=== PATIENT | male | born 1955 | race Caucasian/White ===

== ENCOUNTER 2018-11-19 15:30 | Inpatient (IN) | payer OTHER ==
--- NOTE | 2018-11-19 18:12 | HP ---
"COWS - Scale Resting Pulse: 0= MD 80 or Below Sweatin=Flushed/Facial Moisture Restless Observation: 3= Extraneous Movement Pupil Size: 2= Moderately Dilated (Pupils = 5 mm) Bone or Joint Aches: 0= None Runny Nose/ Eye Tearin= Nasal Congestion GI Upset > 30mins: 2= Nausea/Diarrhea Tremor Observation: 2= Slight Tremor Visible Yawning Observation: 0= None Anxiety or Irritability: 2=Irritable/Anxious Goose Flesh Skin: 0=Smooth Skin COWS Score: 14 CIWA Score - Admission Criteria OAS Guidelines: Admission for Medically Managed Detox: Requires at least one of the followin. CIWA greater than 12 2. Seizures within the past 24 hours 3. Delirium tremens within the past 24 hours 4. Hallucinations within the past 24 hours 5. Acute intervention needed for co occurring medical disorder 6. Acute intervention needed for co occurring psychiatric disorder 7. Severe withdrawal that cannot be handled at a lower level of care (continued vomiting, continued diarrhea, abnormal vital signs) requiring intravenous medication and/or fluids 8. Admission ROS [facility] Chief Complaint: States having alcohol, Xanax, and heroin withdrawal. Allergies/Adverse Reactions: Allergies Allergy/AdvReac Type Severity Reaction Status Date / Time No Known Allergies Allergy Verified 11/19/18 17:37 History of Present Illness: States here to get life in order. Alcohol use began at age 18. Current use since age 57. Last used 11/16 Heroin/opioid use began at age 57. 2 bundles/day. Nasal. Last used today. Denies methadone use. Xanax use began at age 57. 2 mg 3x/wk. Last used 11/14. Nicotine use since age 18. Denies hx seizures, blackouts, or overdoses. Attempted cessation on own - but only lasted 3 days. May be interested in starting Suboxone. No Narcan kit at home and states not interested. PMHx: Cough x 1 month, COPD, Asthma, Hepatitis B and C; Psoriasis, HTN MHHx: Depression, anxiety, insomnia. Denies thoughts of harming self or others. Search Terms: Jeffrey Banks, 1955 Search Date: 11/19/2018 06:06:37 PM The Drug Utilization Report below displays all of the controlled substance prescriptions, if any, that your patient has filled in the last twelve months. The information displayed on this report is compiled from pharmacy submissions to the Department, and accurately reflects the information as submitted by the pharmacies. This report was requested by: Shanthi Jones | Reference #: [id number] There are no results for the search terms that you entered. Exam Limitations: No Limitations - Ebola screening Have you traveled outside of the country in the last 21 days: No Have you had contact with anyone from an Ebola affected area: No Have you been sick,other than usual withdrawal symptoms: No Do you have a fever: Yes - Review of Systems Constitutional: Chills, Diaphoresis, Fever, Changes in sleep (Difficulty staying asleep) EENT: reports: Blurred Vision, Nose Congestion, Dental Problems (Dental pain. Chews and swallows okay.) Respiratory: reports: Cough (x month.), Shortness of Breath, SOB with Exertion Cardiac: reports: Chest Pain (Once in a while r/t stress. Denies at this time.) , Irregular Heart Rate (Hx.) GI: reports: Blood Streaked Bowels (Occassional w/ bowel mo), Diarrhea (Soft/ muddy- blacish/brown), Nausea, Indigestion (acid reflux) : reports: No Symptoms Reported Musculoskeletal: reports: No Symptoms Reported Integumentary: reports: Lesions ((L) upper arm), Other (Psoriasis on buttocks) Neuro: reports: Headache (moderate) Endocrine: reports: No Symptoms Reported Hematology: reports: No Symptoms Reported Psychiatric: reports: Judgement Intact, Orientated x3, Agitated, Anxious, Depressed (Denies thoughts of harming self or others.) Other Systems: Reviewed and Negative Patient History - PPD History Previous Implant?: Yes Documented Results: Negative w/o proof Implanted On Prior [facility] Admission?: No PPD to be Administered?: Yes - Smoking Cessation Smoking history: Current every day smoker Have you smoked in the past 12 months: Yes Aproximately how many cigarettes per day: 10 Hx Chewing Tobacco Use: No Initiated information on smoking cessation: Yes 'Breaking Loose' booklet given: 11/19/18 - Substance & Tx. History Hx Alcohol Use: Yes Hx Substance Use: Yes Substance Use Type: Alcohol, Heroin, Prescribed (Xanax) Hx Substance Use Treatment: No - Substances abused Alcohol Substance route: Oral Frequency: 3-6 times per week Amount used: 2 oz liquor w/ 1 16 oz beer Age of first use: 18 (Current amt since age 57) Date of last use: 11/16/18 Heroin Substance route: Inhalation Frequency: Daily Amount used: 2 bundles Age of first use: 57 Date of last use: 11/19/18 Alprazolam (Xanax) Substance route: Oral Frequency: 3-6 times per week Amount used: 2 mg Age of first use: 57 ( 2 mg 3 x/wk) Date of last use: 11/14/18 Admission Physical Exam S - Vital Signs Vital Signs: Vital Signs - 24 hr 11/19/18 17:52 Temperature 100.7 F H Pulse Rate 78 Respiratory 16 Rate Blood Pressure 125/82 - Physical General Appearance: Yes: Mild Distress, Obese, Tremorous, Sweating, Anxious HEENTM: Yes: EOMI, Hearing grossly Normal, Normocephalic, KENDRA (Pupils = 5 mm) , Pharynx Normal, Nasal Congestion, Rhinorrhea, Other (Chipped, cracked, and missing teeth) Respiratory: Yes: Lungs Clear, Normal Breath Sounds, No Respiratory Distress, Other (Cough productive of thick, yellowish phlegm) Neck: Yes: No masses,lesions,Nodules, Supple Breast: Yes: Breast Exam Deferred Cardiology: Yes: Regular Rhythm, Regular Rate, S1, S2, Edema (Edema (L) foot and ankle area. Pedal pulses (+). No increased warmth or erythema. FWB.) Abdominal: Yes: Non Tender, Soft, Increased Bowel Sounds, Protuberent ( Increased abdominal adiposity) Genitourinary: Yes: Within Normal Limits Back: Yes: Other (Slight curvature of spine. Becca-tender) Musculoskeletal: Yes: full range of Motion Extremities: Yes: Normal Capillary Refill, Normal Range of Motion, Tremors ( Mild tremors increase w/ arm elevation) Neurological: Yes: cotton feeder II-XII NML intact, Alert, Motor Strength 5/5, Normal Mood /Affect Integumentary: Yes: Normal Color, Dry, Warm, Diaphoresis, Other (Red, raised lesions on both buttocks. Superficial, closed abrasion on (L) upper arm) Lymphatic: Yes: Within Normal Limits - Diagnostic (1) Opioid dependence with withdrawal Current Visit: Yes Status: Acute (2) Alcohol use disorder, moderate, in early remission Current Visit: Yes Status: Acute (3) Xanax use disorder, mild, in early remission Current Visit: Yes Status: Acute (4) COPD (chronic obstructive pulmonary disease) Current Visit: Yes Status: Chronic Qualifiers: COPD type: unspecified COPD Qualified Code(s): J44.9 - Chronic obstructive pulmonary disease, unspecified (5) Poor dentition Current Visit: Yes Status: Chronic (6) Acid reflux Current Visit: Yes Status: Chronic Qualifiers: Esophagitis presence: without esophagitis Qualified Code(s): K21.9 - Gastro -esophageal reflux disease without esophagitis (7) Kyphosis Current Visit: Yes Status: Chronic Qualifiers: Kyphosis type: unspecified Spinal region: cervicothoracic Qualified Code( s): M40.203 - Unspecified kyphosis, cervicothoracic region (8) URI (upper respiratory infection) Current Visit: Yes Status: Acute Qualifiers: URI type: unspecified URI Qualified Code(s): J06.9 - Acute upper respiratory infection, unspecified (9) HTN (hypertension) Current Visit: Yes Status: Chronic Qualifiers: Hypertension type: unspecified Qualified Code(s): I10 - Essential (primary ) hypertension (10) Obesity (BMI 30.0-34.9) Current Visit: Yes Status: Chronic (11) Psoriasis Current Visit: Yes Status: Chronic Cleared for Admission S - Detox or Rehab [facility] Level of Care: Medically Managed Detox Regimen/Protocol: Methadone Breathalyzer - Breathalyzer Breathalyzer: 0 Urine Drug Screen - Test Device Lot number: [id number] Expiration date: 11/18/19 - Control Is test valid?: Yes - Results Drug screen NEGATIVE: No Urine drug screen results: MOP-Opiates, MTD-Methadone Inpatient Rehab Admission - Rehab Decision to Admit Inpatient rehab admission?: No"
[2018-11-19] MEDS ORDERED: MENTHOL/PHENOL 1 EACH UD MM PRN (19:00)
[2018-11-19] MEDS ORDERED: NALOXONE HCL 0.4 MG/ML VIAL IVPUSH PRN (19:00)
[2018-11-19] MEDS ORDERED: MAGNESIUM HYDROX 2400MG/30ML ORAL SUSPENSION 30 ML CUP PO PRN (19:00)
[2018-11-19] MEDS ORDERED: cloNIDine HCL 0.1 MG TABLET PO PRN (19:00)
[2018-11-19] MEDS ORDERED: ACETAMINOPHEN 325 MG TABLET (FP) PO PRN (19:00)
[2018-11-19] MEDS ORDERED: MAGNESIUM CITRATE 300 ML BOTTLE PO PRN (19:00)
[2018-11-19] MEDS ORDERED: BENZOCAINE 20 % GEL TUBE MM PRN (19:07)
[2018-11-19] MEDS ORDERED: AZITHROMYCIN 250 MG TABLET PO ONE (20:15)
[2018-11-19] MEDS ORDERED: METHADONE HCL 10 MG TABLET PO ONE (20:15)
[2018-11-19] MEDS ORDERED: AZITHROMYCIN 250 MG TABLET PO SCH (20:15)
[2018-11-19] MEDS: ALBUTEROL SO4 2.5/IPRATROPIUM 0.5 INH SOL 3 ML VIAL.NEB. NEB SCH (20:19)
[2018-11-19] MEDS: diazePAM 5 MG TABLET PO PRN (20:35)
[2018-11-19] MEDS: ACETAMINOPHEN 325 MG TABLET (FP) PO PRN (20:37)
[2018-11-19] MEDS: guaiFENesin 200 MG/10 ML 10 ML UNIT-DOSE CUPS PO SCH (20:40)
[2018-11-19] MEDS: THIAMINE HCL 100 MG TABLET (FP) PO SCH (22:27)
[2018-11-19] MEDS: traZODone HCL 50 MG TABLET (FP) PO PRN (22:28)
[2018-11-19] MEDS: PANTOPRAZOLE 20 MG TABLET (FP) PO SCH (22:28)
[2018-11-19] MEDS ORDERED: METHADONE HCL 10 MG TABLET (FOR DETOX USE ONLY) PO ONE (23:00)
[2018-11-20] MEDS: ALBUTEROL SO4 2.5/IPRATROPIUM 0.5 INH SOL 3 ML VIAL.NEB. NEB SCH (07:41)
[2018-11-20] MEDS: guaiFENesin 200 MG/10 ML 10 ML UNIT-DOSE CUPS PO SCH ×3 (07:41→19:21)
[2018-11-20] MEDS ORDERED: METHADONE HCL 10 MG TABLET (FOR DETOX USE ONLY) PO ONE (10:00)
[2018-11-20] MEDS ORDERED: PATIENT'S OWN MEDICATION (NON-FORMULARY) (Clonidine Hcl [Clonidine Hcl] 0.3 MG) PO SCH (10:00)
[2018-11-20 10:10] LABS: HEMATOCRIT 40.2 % (35.4-49); MCH 32.1 pg (25.7-33.7); MCHC 34.8 g/dl (32.0-35.9); MEAN CELL VOLUME 92.4 fl (80-96); PLATELET COUNT 173 K/MM3 (134-434); RBC 4.35 M/mm3 (4.00-5.60); RDW 14.4 % (11.9-15.9); WHITE BLOOD COUNT 5.9 K/mm3 (4.0-10.0)
[2018-11-20] MEDS: NICOTINE POLACRILEX 2 MG GUM BUC PRN (10:14)
[2018-11-20] MEDS: PRENATAL VITAMINS W/ FOLIC ACID TABLET (FP) PO SCH (10:14)
[2018-11-20] MEDS: PANTOPRAZOLE 20 MG TABLET (FP) PO SCH ×2 (10:15→22:13)
[2018-11-20] MEDS: NICOTINE 14 MG/24 HOURS TOPICAL PATCH TD SCH (10:15)
[2018-11-20] MEDS: diazePAM 5 MG TABLET PO PRN ×2 (10:15→17:32)
[2018-11-20] MEDS: cloNIDine HCL 0.1 MG TABLET PO SCH (10:24)
[2018-11-20 10:25] LABS: ALBUMIN 3.3 g/dl (3.4-5.0); ALK PHOS 71 U/L (45-117); ANION GAP 5 MMOL/L (8-16); BILIRUBIN,TOTAL 0.4 mg/dL (0.2-1); BLOOD UREA NITROGEN 16 mg/dL (7-18); CALCIUM 8.4 mg/dL (8.5-10.1); CHLORIDE 104 mmol/L (98-107); CO2 28 mmol/L (21-32); CREATININE 0.9 mg/dL (0.55-1.3); GLUCOSE,RANDOM 87 mg/dL (74-106); SGOT/AST 32 U/L (15-37); SGPT/ALT 47 U/L (13-61); SODIUM 137 mmol/L (136-145); TOT PROT 6.4 g/dl (6.4-8.2)
[2018-11-20] MEDS: HYDROCORTISONE 1% TOPICAL CREAM 30 GM TUBE TP PRN (11:02)
[2018-11-20] MEDS: ALBUTEROL SO4 0.083% IH SOL 2.5 MG/3 ML VIAL.NEB. NEB PRN (12:13)
--- NOTE | 2018-11-20 14:46 | EKG ---
Test Reason : Blood Pressure : / mmHG Vent. Rate : 079 BPM Atrial Rate : 079 BPM P-R Int : 144 ms QRS Dur : 084 ms QT Int : 358 ms P-R-T Axes : 054 062 073 degrees QTc Int : 410 ms NORMAL SINUS RHYTHM NORMAL ECG NO PREVIOUS ECGS AVAILABLE Confirmed by Jose Smallwood ([id number]) on 11/20/2018 2:45:58 PM Referred By: Confirmed By:Jose Smallwood
--- NOTE | 2018-11-20 14:54 | PN ---
BHS COWS - Scale Resting Pulse: 1= AR 81-100 Sweatin= Chills/Flushing Restless Observation: 0= Sits Still Pupil Size: 0= Normal to Room Light Bone or Joint Aches: 2= Severe Diffuse Aches Runny Nose/ Eye Tearin= None GI Upset > 30mins: 2= Nausea/Diarrhea Tremor Observation of Outstretched Hands: 0= None Yawning Observation: 1= 1-2x During Session Anxiety or Irritability: 2=Irritable/Anxious Goose Flesh Skin: 3=Piloerection COWS Score: 12 BHS Progress Note (SOAP) Subjective: Stomach Cramping, Body Aches, Diarrhea, Sweating, H/A, Interrupted Sleep. Objective: PATIENT A & O X 3, OBSERVED AMBULATING ON UNIT. IN NO ACUTE DISTRESS. 11/20/18 14:52 Vital Signs Temperature 97.2 F L 11/20/18 13:55 Pulse Rate 88 11/20/18 13:55 Respiratory Rate 18 11/20/18 13:55 Blood Pressure 113/77 11/20/18 13:55 O2 Sat by Pulse Oximetry (%) Laboratory Tests 11/20/18 11/20/18 07:00 07:00 WBC 5.9 RBC 4.35 Hgb 14.0 Hct 40.2 MCV 92.4 MCH 32.1 MCHC 34.8 RDW 14.4 Plt Count 173 MPV 8.0 Sodium 137 Potassium 4.0 Chloride 104 Carbon Dioxide 28 Anion Gap 5 L BUN 16 Creatinine 0.9 Creat Clearance w eGFR 85.23 Random Glucose 87 Calcium 8.4 L Total Bilirubin 0.4 AST 32 ALT 47 Alkaline Phosphatase 71 Total Protein 6.4 Albumin 3.3 L LABS NOTED. RPR RESULT PENDING. 11/20/18 14:53 Assessment: 11/20/18 14:53 WITHDRAWAL SYMPTOMS. Plan: CONTINUE DETOX. INCREASE DAILY PO FLUID INTAKE. PRN PEPTO-BISMIOL PO FOR DIARRHEA.
[2018-11-20] MEDS: THIAMINE HCL 100 MG TABLET (FP) PO SCH (22:13)
[2018-11-20] MEDS: MELATONIN 5 MG TABLETS PO PRN (22:14)
[2018-11-21] MEDS: traZODone HCL 50 MG TABLET (FP) PO PRN (00:01)
[2018-11-21] MEDS: guaiFENesin 200 MG/10 ML 10 ML UNIT-DOSE CUPS PO SCH ×3 (05:55→21:24)
[2018-11-21] MEDS ORDERED: METHADONE HCL 10 MG TABLET (FOR DETOX USE ONLY) PO ONE (10:00)
[2018-11-21] MEDS: diazePAM 5 MG TABLET PO PRN ×3 (10:30→17:51)
[2018-11-21] MEDS: PANTOPRAZOLE 20 MG TABLET (FP) PO SCH ×2 (10:30→22:16)
[2018-11-21] MEDS: PRENATAL VITAMINS W/ FOLIC ACID TABLET (FP) PO SCH (10:30)
[2018-11-21] MEDS: NICOTINE 14 MG/24 HOURS TOPICAL PATCH TD SCH (10:31)
[2018-11-21] MEDS: cloNIDine HCL 0.1 MG TABLET PO SCH (10:31)
[2018-11-21] MEDS: HYDROCORTISONE 1% TOPICAL CREAM 30 GM TUBE TP PRN (12:35)
[2018-11-21] MEDS: ALBUTEROL SO4 0.083% IH SOL 2.5 MG/3 ML VIAL.NEB. NEB PRN ×2 (12:53→20:00)
--- NOTE | 2018-11-21 15:09 | PN ---
BHS COWS - Scale Resting Pulse: 2= IA 101-120 Sweatin= Chills/Flushing BHS Progress Note (SOAP) Subjective: Body Aches, Diarrhea, Sweating, Interrupted Sleep. Objective: PATIENT A & O X 3, OBSERVED AMBULATING ON UNIT. IN NO ACUTE DISTRESS. 11/21/18 15:08 Vital Signs Temperature 96.8 F L 11/21/18 14:32 Pulse Rate 76 11/21/18 14:32 Respiratory Rate 18 11/21/18 14:32 Blood Pressure 109/71 11/21/18 14:32 O2 Sat by Pulse Oximetry (%) Laboratory Tests 11/20/18 11/20/18 11/20/18 07:00 07:00 07:00 WBC 5.9 RBC 4.35 Hgb 14.0 Hct 40.2 MCV 92.4 MCH 32.1 MCHC 34.8 RDW 14.4 Plt Count 173 MPV 8.0 Sodium 137 Potassium 4.0 Chloride 104 Carbon Dioxide 28 Anion Gap 5 L BUN 16 Creatinine 0.9 Creat Clearance w eGFR 85.23 Random Glucose 87 Calcium 8.4 L Total Bilirubin 0.4 AST 32 ALT 47 Alkaline Phosphatase 71 Total Protein 6.4 Albumin 3.3 L RPR Titer Nonreactive LABS NOTED. Assessment: 11/21/18 15:08 WITHDRAWAL SYMPTOMS. Plan: CONTINUE DETOX. PRN ROBAXIN PO FOR BODY ACHES / MUSCLE SPASMS. PRN PEPTO-BISMOL PO FOR DIARRHEA.
[2018-11-21] MEDS: MAG HYDROX/AL HYDROX/SIMETH 30 ML UNIT-DOSE CUP PO PRN ×2 (17:51)
--- NOTE | 2018-11-21 17:55 | CONSULT ---
[facility] Psychiatric Consult - Data Date of interview: 11/21/18 Admission source: [facility] Identifying data: First admission to [facility] for this 63 y/o male self-referred for detoxification treatment (heroin, xanax). Examined at [address] [place] [address]. patient is single, no children, homeless, unemployed retired and supported on a pension + Social Security benefits. Substance Abuse History: Discussed in this session. Mr Jocelyn endorses a fairly recent history of heroin abuse . Started at ag 57 after his alf and escalated in recent months (2 bundles daily via snorting). Patient indicates that he uses alcohol sporadically (had consumed 16 oz of beer + 2 shots of whiskey five days ago. Smohes 1/2 pack of cigarettes daily. Additional details in current [facility] report as follows : Smoking history: Current every day smoker. Have you smoked in the past 12 months: Yes. Aproximately how many cigarettes per day: 10. Hx Chewing Tobacco Use: No. Initiated information on smoking cessation: Yes. 'Breaking Loose' booklet given: 11/19/18. - Substance & Tx. History. Hx Alcohol Use: Yes. Hx Substance Use: Yes. Substance Use Type: Alcohol, Heroin, Prescribed (Xanax). Hx Substance Use Treatment: No. - Substances abused. Alcohol. Substance route: Oral. Frequency: 3-6 times per week. Amount used: 2 oz liquor w/ 1 16 oz beer. Age of first use: 18 ( Current amt since age 57). Date of last use: 11/16/18. Heroin. Substance route: Inhalation. Frequency: Daily. Amount used: 2 bundles. Age of first use : 57. Date of last use: 11/19/18. Alprazolam (Xanax). Substance route: Oral. Frequency: 3-6 times per week. Amount used: 2 mg. Age of first use: 57 ( 2 mg 3 x/wk). Date of last use: 11/14/18 Medical History: Remarkable for hepatitis B, psoriasis, hypertension, COPD, bronchial asthma and a history of orthosurgery (left shoulder). Psychiatric History: Patient denies history of psychiatric hospitalizations. Saw a psychiatrist a few months ago to address issues of dysphoria + insomnia. Was prescribed trazodone at bedtime. Never referred to psychiatric OPD care. No history of suicide attempts. Physical/Sexual Abuse/Trauma History: Patient denies. Additional Comment: Urine drug screen results: MOP-Opiates, MTD-Methadone. Noted. Mental Status Exam - Mental Status Exam Alert and Oriented to: Time, Place, Person Cognitive Function: Good Patient Appearance: Disheveled Mood: Nervous, Anxious Affect: Mood Congruent, Constricted Patient Behavior: Fatigued, Appropriate, Cooperative Speech Pattern: Clear Voice Loudness: Normal Thought Process: Goal Oriented Thought Disorder: Not Present Hallucinations: Denies Suicidal Ideation: Denies Homicidal Ideation: Denies Insight/Judgement: Poor Sleep: Fair Appetite: Good Muscle strength/Tone: Normal Gait/Station: Normal Psychiatric Findings - Problem List ([place] 1, 2,3) (1) Opioid dependence with withdrawal Current Visit: Yes Status: Acute (2) Alcohol use disorder, moderate, in early remission Current Visit: Yes Status: Acute (3) Benzodiazepine abuse Current Visit: Yes Status: Acute (4) Substance induced mood disorder Current Visit: Yes Status: Chronic (5) Insomnia Current Visit: Yes Status: Chronic - Initial Treatment Plan Initial Treatment Plan: Psychoeducation and support. Sleep hygiene. Detoxification in progress. Motivational rounds for lifestyle changes. Rehabilitation recoomended (patient is in agreement). Continue trazodone at 50 mg po hs prn. NO increase justified at this time. Discussed with the patient. Mr Banks is made aware of potential for priapism. patient agrees to follow this plan of care. Observation.
[2018-11-21] MEDS: MELATONIN 5 MG TABLETS PO PRN (22:16)
[2018-11-21] MEDS: THIAMINE HCL 100 MG TABLET (FP) PO SCH (22:16)
[2018-11-22] MEDS: diazePAM 5 MG TABLET PO PRN ×3 (00:24→18:07)
[2018-11-22] MEDS: guaiFENesin 200 MG/10 ML 10 ML UNIT-DOSE CUPS PO SCH ×2 (04:30→10:34)
[2018-11-22] MEDS: ALBUTEROL SO4 0.083% IH SOL 2.5 MG/3 ML VIAL.NEB. NEB PRN ×2 (09:21→15:46)
[2018-11-22] MEDS ORDERED: METHADONE HCL 10 MG TABLET (FOR DETOX USE ONLY) PO ONE (10:00)
[2018-11-22] MEDS ORDERED: ALBUTEROL SO4 8 GM HFA INHALER IH PRN (10:24)
[2018-11-22] MEDS: cloNIDine HCL 0.1 MG TABLET PO SCH (10:33)
[2018-11-22] MEDS: PANTOPRAZOLE 20 MG TABLET (FP) PO SCH ×2 (10:34→22:07)
[2018-11-22] MEDS: PRENATAL VITAMINS W/ FOLIC ACID TABLET (FP) PO SCH (10:34)
[2018-11-22] MEDS: NICOTINE 14 MG/24 HOURS TOPICAL PATCH TD SCH (10:35)
[2018-11-22] MEDS: HYDROCORTISONE 1% TOPICAL CREAM 30 GM TUBE TP PRN ×2 (10:38→20:43)
[2018-11-22] MEDS: BISMUTH SUBSALICYLATE 524 MG/30 ML UD PO PRN ×2 (11:10→18:08)
--- NOTE | 2018-11-22 17:13 | PN ---
BHS Progress Note (SOAP) Subjective: Anxious, Body Aches, Diarrhea. Objective: PATIENT A & O X 3, OBSERVED AMBULATING ON UNIT. IN NO ACUTE DISTRESS. 11/22/18 17:13 Vital Signs Temperature 99.3 F 11/22/18 13:58 Pulse Rate 63 11/22/18 16:16 Respiratory Rate 20 11/22/18 13:58 Blood Pressure 108/70 11/22/18 13:58 O2 Sat by Pulse Oximetry (%) 98 11/22/18 09:51 Laboratory Tests 11/20/18 11/20/18 11/20/18 07:00 07:00 07:00 WBC 5.9 RBC 4.35 Hgb 14.0 Hct 40.2 MCV 92.4 MCH 32.1 MCHC 34.8 RDW 14.4 Plt Count 173 MPV 8.0 Sodium 137 Potassium 4.0 Chloride 104 Carbon Dioxide 28 Anion Gap 5 L BUN 16 Creatinine 0.9 Creat Clearance w eGFR 85.23 Random Glucose 87 Calcium 8.4 L Total Bilirubin 0.4 AST 32 ALT 47 Alkaline Phosphatase 71 Total Protein 6.4 Albumin 3.3 L RPR Titer Nonreactive LABS NOTED. Assessment: 11/22/18 17:14 WITHDRAWAL SYMPTOMS. Plan: CONTINUE DETOX. INCREASE DAILY PO FLUID INTAKE. PRN PEPTO-BISMOL PO FOR DIARRHEA. PATIENT SCHEDULED FOR D/C TOMORROW.
[2018-11-22] MEDS: THIAMINE HCL 100 MG TABLET (FP) PO SCH (22:07)
[2018-11-22] MEDS: MELATONIN 5 MG TABLETS PO PRN (22:07)
[2018-11-22] MEDS: traZODone HCL 50 MG TABLET (FP) PO PRN (22:07)
[2018-11-23] MEDS: MAG HYDROX/AL HYDROX/SIMETH 30 ML UNIT-DOSE CUP PO PRN (05:26)
[2018-11-23] MEDS ORDERED: METHADONE HCL 5 MG TABLET (FOR DETOX USE ONLY) PO ONE (06:00)
[2018-11-23] MEDS: HYDROCORTISONE 1% TOPICAL CREAM 30 GM TUBE TP PRN ×2 (08:51→22:04)
[2018-11-23] MEDS: cloNIDine HCL 0.1 MG TABLET PO SCH (10:34)
[2018-11-23] MEDS: PANTOPRAZOLE 20 MG TABLET (FP) PO SCH ×2 (10:35→22:03)
[2018-11-23] MEDS: METHOCARBAMOL 500 MG TABLET PO PRN ×2 (10:35→17:39)
[2018-11-23] MEDS: PRENATAL VITAMINS W/ FOLIC ACID TABLET (FP) PO SCH (10:36)
[2018-11-23] MEDS: NICOTINE 14 MG/24 HOURS TOPICAL PATCH TD SCH (10:36)
--- NOTE | 2018-11-23 11:18 | PN ---
S Progress Note (SOAP) Subjective: alert,no complaint Objective: 11/23/18 11:16 Vital Signs Temperature 97.4 F L 11/23/18 10:21 Pulse Rate 83 11/23/18 10:21 Respiratory Rate 18 11/23/18 10:21 Blood Pressure 124/79 11/23/18 10:21 O2 Sat by Pulse Oximetry (%) 98 11/22/18 09:51 Assessment: 11/23/18 11:16 detox completed,no withdrawal symptom Plan: discharge from detox,transfer to [address] [place] [address] for further level of care
--- NOTE | 2018-11-23 11:35 | DS ---
[facility] Detox Discharge Summary Admission Date: 11/19/18 Discharge Date: 11/23/18 - History Present History: Alcohol Dependence, Opioid Dependence, Sedative Dependence Additional Comments: transfer to [address] for further level of care Pertinent Past History: copd essential hypertension - Physical Exam Results Vital Signs: Vital Signs Temperature 97.4 F L 11/23/18 10:21 Pulse Rate 83 11/23/18 10:21 Respiratory Rate 18 11/23/18 10:21 Blood Pressure 124/79 11/23/18 10:21 O2 Sat by Pulse Oximetry (%) 98 11/22/18 09:51 Pertinent Admission Physical Exam Findings: withdrawal symptom Vital Signs Temperature 97.4 F L 11/23/18 10:21 Pulse Rate 83 11/23/18 10:21 Respiratory Rate 18 11/23/18 10:21 Blood Pressure 124/79 11/23/18 10:21 O2 Sat by Pulse Oximetry (%) 98 11/22/18 09:51 Laboratory Last Values WBC 5.9 K/mm3 (4.0-10.0) 11/20/18 07:00 RBC 4.35 M/mm3 (4.00-5.60) 11/20/18 07:00 Hgb 14.0 GM/dL (11.7-16.9) 11/20/18 07:00 Hct 40.2 % (35.4-49) 11/20/18 07:00 MCV 92.4 fl (80-96) 11/20/18 07:00 MCH 32.1 pg (25.7-33.7) 11/20/18 07:00 MCHC 34.8 g/dl (32.0-35.9) 11/20/18 07:00 RDW 14.4 % (11.9-15.9) 11/20/18 07:00 Plt Count 173 K/MM3 (134-434) 11/20/18 07:00 MPV 8.0 fl (7.5-11.1) 11/20/18 07:00 Sodium 137 mmol/L (136-145) 11/20/18 07:00 Potassium 4.0 mmol/L (3.5-5.1) 11/20/18 07:00 Chloride 104 mmol/L (98-107) 11/20/18 07:00 Carbon Dioxide 28 mmol/L (21-32) 11/20/18 07:00 Anion Gap 5 MMOL/L (8-16) L 11/20/18 07:00 BUN 16 mg/dL (7-18) 11/20/18 07:00 Creatinine 0.9 mg/dL (0.55-1.3) 11/20/18 07:00 Creat Clearance w eGFR 85.23 (>60) 11/20/18 07:00 Random Glucose 87 mg/dL (74-106) 11/20/18 07:00 Calcium 8.4 mg/dL (8.5-10.1) L 11/20/18 07:00 Total Bilirubin 0.4 mg/dL (0.2-1) 11/20/18 07:00 AST 32 U/L (15-37) 11/20/18 07:00 ALT 47 U/L (13-61) 11/20/18 07:00 Alkaline Phosphatase 71 U/L (45-117) 11/20/18 07:00 Total Protein 6.4 g/dl (6.4-8.2) 11/20/18 07:00 Albumin 3.3 g/dl (3.4-5.0) L 11/20/18 07:00 RPR Titer Nonreactive (NONREACTIVE) 11/20/18 07:00 - Treatment Hospital Course: Detox Protocol Followed, Detoxed Safely, Responded well, Discharged Condition Good, Rehab Referral Accepted Patient has Accepted a Rehab Referral to: [facility] [address] [place] [phone] - Medication Discharge Medications: Ambulatory Orders Clonidine HCl 0.3 mg PO DAILY 11/19/18 Esomeprazole Magnesium [Nexium 24Hr] 20 mg PO DAILY 11/19/18 - AMA Did Patient Leave Against Medical Advice: No
--- NOTE | 2018-11-23 11:37 | HP ---
[facility] Rehab Assess/Revision - Admission History Admitted to Rehab from: [facility] Date of Admission to Rehab: 11/518 - Vital signs Vital Signs: Vital Signs Period Temp Pulse Resp BP Sys/[place] Pulse Ox Last 24 Hr 97.1 F-99.3 F 63-83 18-20 108-124/61-79 - Findings Detox History & Physical reviewed: Yes Concur with findings: Yes Inpatient Rehab Admission - Rehab Decision to Admit Inpatient rehab admission?: Yes - Initial Determination Are CD services needed?: Yes Free of communicable disease: Yes Not in need of hospitalization: Yes - Rehab Admission Criteria Previous failed treatment: Yes Poor recovery environment: Yes Comorbidities: Yes Lacks judgement: No Patient is meeting Inpatient Rehab admission criteria:: Yes
[2018-11-23] MEDS: ACETAMINOPHEN 325 MG TABLET (FP) PO PRN (11:52)
[2018-11-23] MEDS: ALBUTEROL SO4 0.083% IH SOL 2.5 MG/3 ML VIAL.NEB. NEB PRN (17:42)
[2018-11-23] MEDS: traZODone HCL 50 MG TABLET (FP) PO PRN (22:03)
[2018-11-23] MEDS: THIAMINE HCL 100 MG TABLET (FP) PO SCH (22:03)
[2018-11-23] MEDS: BISMUTH SUBSALICYLATE 524 MG/30 ML UD PO PRN (22:23)
[2018-11-24] MEDS: ALBUTEROL SO4 0.083% IH SOL 2.5 MG/3 ML VIAL.NEB. NEB PRN ×2 (09:50→16:45)
[2018-11-24] MEDS: HYDROCORTISONE 1% TOPICAL CREAM 30 GM TUBE TP PRN ×2 (10:29→21:45)
[2018-11-24] MEDS: PANTOPRAZOLE 20 MG TABLET (FP) PO SCH ×2 (10:29→21:41)
[2018-11-24] MEDS: PRENATAL VITAMINS W/ FOLIC ACID TABLET (FP) PO SCH (10:29)
[2018-11-24] MEDS: NICOTINE 14 MG/24 HOURS TOPICAL PATCH TD SCH (10:30)
[2018-11-24] MEDS: METHOCARBAMOL 500 MG TABLET PO PRN ×2 (10:31→21:42)
[2018-11-24] MEDS: BISMUTH SUBSALICYLATE 524 MG/30 ML UD PO PRN (10:33)
[2018-11-24] MEDS: cloNIDine HCL 0.1 MG TABLET PO SCH (10:41)
[2018-11-24] MEDS ORDERED: PNEUMOC 13-VAL CONJ-DIP CRM/PF 0.5 ML DISP.SYRIN IM ONE (12:00)
[2018-11-24] MEDS ORDERED: PNEUMOCOCCAL 23 VACCINE 0.5 ML VIAL IM ONE (12:00)
[2018-11-24] MEDS ORDERED: FLU VACCINE QUAD 60 MCG/0.5 ML (MDV 18-19) IM ONE (12:00)
[2018-11-24] MEDS: traZODone HCL 50 MG TABLET (FP) PO PRN (21:41)
[2018-11-24] MEDS: MELATONIN 5 MG TABLETS PO PRN (21:42)
[2018-11-24] MEDS: THIAMINE HCL 100 MG TABLET (FP) PO SCH (21:42)
[2018-11-25] MEDS: PRENATAL VITAMINS W/ FOLIC ACID TABLET (FP) PO SCH (10:34)
[2018-11-25] MEDS: METHOCARBAMOL 500 MG TABLET PO PRN (10:34)
[2018-11-25] MEDS: NICOTINE 14 MG/24 HOURS TOPICAL PATCH TD SCH (10:34)
[2018-11-25] MEDS: PANTOPRAZOLE 20 MG TABLET (FP) PO SCH ×2 (10:34→21:27)
[2018-11-25] MEDS: cloNIDine HCL 0.1 MG TABLET PO SCH (10:35)
[2018-11-25] MEDS: ALBUTEROL SO4 0.083% IH SOL 2.5 MG/3 ML VIAL.NEB. NEB PRN ×2 (11:04→21:53)
[2018-11-25] MEDS: THIAMINE HCL 100 MG TABLET (FP) PO SCH (21:28)
[2018-11-25] MEDS: IBUPROFEN 400 MG TABLET (FP) PO PRN (21:28)
[2018-11-25] MEDS: MELATONIN 5 MG TABLETS PO PRN (21:28)
[2018-11-26] MEDS: cloNIDine HCL 0.1 MG TABLET PO SCH (10:48)
[2018-11-26] MEDS: PANTOPRAZOLE 20 MG TABLET (FP) PO SCH ×2 (10:48→21:41)
[2018-11-26] MEDS: NICOTINE 14 MG/24 HOURS TOPICAL PATCH TD SCH (10:48)
[2018-11-26] MEDS: PRENATAL VITAMINS W/ FOLIC ACID TABLET (FP) PO SCH (10:49)
[2018-11-26] MEDS: ALBUTEROL SO4 0.083% IH SOL 2.5 MG/3 ML VIAL.NEB. NEB PRN (17:38)
[2018-11-26] MEDS: ACETAMINOPHEN 325 MG TABLET (FP) PO PRN (17:57)
[2018-11-26] MEDS: THIAMINE HCL 100 MG TABLET (FP) PO SCH (21:41)
[2018-11-26] MEDS: MELATONIN 5 MG TABLETS PO PRN (21:41)
[2018-11-26] MEDS: HYDROCORTISONE 1% TOPICAL CREAM 30 GM TUBE TP PRN (21:42)
[2018-11-27] MEDS: PRENATAL VITAMINS W/ FOLIC ACID TABLET (FP) PO SCH (10:29)
[2018-11-27] MEDS: PANTOPRAZOLE 20 MG TABLET (FP) PO SCH ×2 (10:29→21:37)
[2018-11-27] MEDS: NICOTINE 14 MG/24 HOURS TOPICAL PATCH TD SCH (10:29)
[2018-11-27] MEDS: cloNIDine HCL 0.1 MG TABLET PO SCH (10:29)
--- NOTE | 2018-11-27 15:22 | PN ---
S Progress Note Note: PT C/O "RESTLESS LEGS AND DISCOMFORT". Vital Signs - 24 hr 11/27/18 11/27/18 11/27/18 00:30 03:30 06:40 Temperature 97.4 F L Pulse Rate 58 L Respiratory 18 18 20 Rate Blood Pressure 114/83 11/27/18 10:00 Temperature Pulse Rate 64 Respiratory Rate Blood Pressure 117/80 Laboratory Tests 11/20/18 11/20/18 11/20/18 07:00 07:00 07:00 WBC 5.9 RBC 4.35 Hgb 14.0 Hct 40.2 MCV 92.4 MCH 32.1 MCHC 34.8 RDW 14.4 Plt Count 173 MPV 8.0 Sodium 137 Potassium 4.0 Chloride 104 Carbon Dioxide 28 Anion Gap 5 L BUN 16 Creatinine 0.9 Creat Clearance w eGFR 85.23 Random Glucose 87 Calcium 8.4 L Total Bilirubin 0.4 AST 32 ALT 47 Alkaline Phosphatase 71 Total Protein 6.4 Albumin 3.3 L RPR Titer Nonreactive W/S PLAN:FLEXERIL 10 MG PO TID INCREASE PO FLUIDS
[2018-11-27] MEDS: ALBUTEROL SO4 0.083% IH SOL 2.5 MG/3 ML VIAL.NEB. NEB PRN (17:00)
[2018-11-27] MEDS: THIAMINE HCL 100 MG TABLET (FP) PO SCH (21:37)
[2018-11-27] MEDS: CYCLOBENZAPRINE HCL 10 MG TABLET (FP) PO PRN (21:39)
[2018-11-28] MEDS: PANTOPRAZOLE 20 MG TABLET (FP) PO SCH ×2 (10:30→21:22)
[2018-11-28] MEDS: NICOTINE 14 MG/24 HOURS TOPICAL PATCH TD SCH (10:30)
[2018-11-28] MEDS: PRENATAL VITAMINS W/ FOLIC ACID TABLET (FP) PO SCH (10:30)
[2018-11-28] MEDS: cloNIDine HCL 0.1 MG TABLET PO SCH (10:30)
[2018-11-28] MEDS: HYDROCORTISONE 1% TOPICAL CREAM 30 GM TUBE TP PRN (10:31)
[2018-11-28] MEDS: IBUPROFEN 400 MG TABLET (FP) PO PRN (10:32)
[2018-11-28] MEDS: THIAMINE HCL 100 MG TABLET (FP) PO SCH (21:22)
[2018-11-28] MEDS: MELATONIN 5 MG TABLETS PO PRN (21:22)
[2018-11-28] MEDS: CYCLOBENZAPRINE HCL 10 MG TABLET (FP) PO PRN (21:24)
[2018-11-28] MEDS: ALBUTEROL SO4 0.083% IH SOL 2.5 MG/3 ML VIAL.NEB. NEB PRN (21:25)
[2018-11-29] MEDS: cloNIDine HCL 0.1 MG TABLET PO SCH (10:01)
[2018-11-29] MEDS: PANTOPRAZOLE 20 MG TABLET (FP) PO SCH ×2 (10:01→21:38)
[2018-11-29] MEDS: NICOTINE 14 MG/24 HOURS TOPICAL PATCH TD SCH (10:02)
[2018-11-29] MEDS: PRENATAL VITAMINS W/ FOLIC ACID TABLET (FP) PO SCH (10:02)
[2018-11-29] MEDS: ACETAMINOPHEN 325 MG TABLET (FP) PO PRN (10:03)
[2018-11-29] MEDS: CYCLOBENZAPRINE HCL 10 MG TABLET (FP) PO PRN (21:38)
[2018-11-29] MEDS: NICOTINE POLACRILEX 2 MG GUM BUC PRN (21:38)
[2018-11-29] MEDS: THIAMINE HCL 100 MG TABLET (FP) PO SCH (21:38)
[2018-11-30] MEDS: cloNIDine HCL 0.1 MG TABLET PO SCH ×2 (10:16→11:02)
[2018-11-30] MEDS: PANTOPRAZOLE 20 MG TABLET (FP) PO SCH ×2 (11:01→21:41)
[2018-11-30] MEDS: PRENATAL VITAMINS W/ FOLIC ACID TABLET (FP) PO SCH (11:01)
[2018-11-30] MEDS: NICOTINE 14 MG/24 HOURS TOPICAL PATCH TD SCH (11:02)
[2018-11-30] MEDS: ACETAMINOPHEN 325 MG TABLET (FP) PO PRN (11:03)
[2018-11-30] MEDS ORDERED: ALBUTEROL SO4 0.083% IH SOL 2.5 MG/3 ML VIAL.NEB. NEB PRN (19:10)
[2018-11-30] MEDS: THIAMINE HCL 100 MG TABLET (FP) PO SCH (21:41)
[2018-11-30] MEDS: CYCLOBENZAPRINE HCL 10 MG TABLET (FP) PO PRN (21:41)
[2018-11-30] MEDS: HYDROCORTISONE 1% TOPICAL CREAM 30 GM TUBE TP PRN (21:42)
[2018-12-01] MEDS: IBUPROFEN 400 MG TABLET (FP) PO PRN (06:35)
[2018-12-01] MEDS: PRENATAL VITAMINS W/ FOLIC ACID TABLET (FP) PO SCH (10:11)
[2018-12-01] MEDS: PANTOPRAZOLE 20 MG TABLET (FP) PO SCH ×2 (10:11→21:34)
[2018-12-01] MEDS: cloNIDine HCL 0.1 MG TABLET PO SCH (10:11)
[2018-12-01] MEDS: NICOTINE 14 MG/24 HOURS TOPICAL PATCH TD SCH (10:11)
[2018-12-01] MEDS: THIAMINE HCL 100 MG TABLET (FP) PO SCH (21:34)
[2018-12-01] MEDS: ACETAMINOPHEN 325 MG TABLET (FP) PO PRN (21:34)
[2018-12-01] MEDS: CYCLOBENZAPRINE HCL 10 MG TABLET (FP) PO PRN (21:36)
[2018-12-02] MEDS: IBUPROFEN 400 MG TABLET (FP) PO PRN (09:19)
[2018-12-02] MEDS: PANTOPRAZOLE 20 MG TABLET (FP) PO SCH ×2 (10:39→21:29)
[2018-12-02] MEDS: cloNIDine HCL 0.1 MG TABLET PO SCH (10:39)
[2018-12-02] MEDS: PRENATAL VITAMINS W/ FOLIC ACID TABLET (FP) PO SCH (10:39)
[2018-12-02] MEDS: NICOTINE 14 MG/24 HOURS TOPICAL PATCH TD SCH (10:39)
[2018-12-02] MEDS: CYCLOBENZAPRINE HCL 10 MG TABLET (FP) PO PRN (21:29)
[2018-12-02] MEDS: ACETAMINOPHEN 325 MG TABLET (FP) PO PRN (21:30)
[2018-12-02] MEDS: THIAMINE HCL 100 MG TABLET (FP) PO SCH (21:50)
[2018-12-03 07:20] VITALS: BP 115/74; PULSE 55; TEMP 97.7
[2018-12-03] MEDS: PANTOPRAZOLE 20 MG TABLET (FP) PO SCH (09:36)
[2018-12-03] MEDS: PRENATAL VITAMINS W/ FOLIC ACID TABLET (FP) PO SCH (09:36)
[2018-12-03] MEDS: cloNIDine HCL 0.1 MG TABLET PO SCH (09:36)
[2018-12-03] MEDS: NICOTINE 14 MG/24 HOURS TOPICAL PATCH TD SCH (09:37)
--- NOTE | 2018-12-03 10:09 | PN ---
[facility] Progress Note Note: PT COMPLETED REHAB AND DISCHARGED TODAY. PT MET WITH HIS COUNSELOR AUSTYN MORALES AND PT WAS REFERRED TO [facility] ON [address] [place], [place] FOR CD AFTERCARE. PT REPORTS HE HAS A PCP DR.HYACINTH NEVES ON [place], [place] FOR MEDICAL MANAGEMENT. PT REPORTS HE HAS AN APPOINTMENT TODAY AT 1:00 P.M WITH HIS [facility] ON [place], [place]. PT REPORTS HE HAS OWN MEDS AT HOME. NARCAN SPRAY ELECTRONICALLY SENT TO [facility] FOR PT TO DIGITAL ACCOUNT DIRECTOR. Home Medications Medication Instructions Recorded Clonidine HCl 0.3 mg PO DAILY 11/19/18 Esomeprazole Magnesium [Nexium 20 mg PO DAILY 11/19/18 24Hr] Naloxone HCl [Narcan] 4 mg NS ONCE #1 spray 12/03/18 Vital Signs - 24 hr 12/03/18 12/03/18 12/03/18 00:30 03:30 07:20 Temperature 97.7 F Pulse Rate 55 L Respiratory 18 18 16 Rate Blood Pressure 115/74 Laboratory Tests 11/20/18 11/20/18 11/20/18 07:00 07:00 07:00 WBC 5.9 RBC 4.35 Hgb 14.0 Hct 40.2 MCV 92.4 MCH 32.1 MCHC 34.8 RDW 14.4 Plt Count 173 MPV 8.0 Sodium 137 Potassium 4.0 Chloride 104 Carbon Dioxide 28 Anion Gap 5 L BUN 16 Creatinine 0.9 Creat Clearance w eGFR 85.23 Random Glucose 87 Calcium 8.4 L Total Bilirubin 0.4 AST 32 ALT 47 Alkaline Phosphatase 71 Total Protein 6.4 Albumin 3.3 L RPR Titer Nonreactive NAD MEDICALLY STABLE. PLAN:FOLLOW UP WITH CD AFTERCARE RECOMMENDED ON 12/03/18 AT 11:00 FOLLOW UP WITH PCP WITHIN 1 WEEK AFTER DISCHARGE FOLLOW UP WITH YOUR LIVER SPECIALIST APPOINTMENT TODAY AT 1:00 PM AFTER DISCHARGE.
== END 2018-12-03 10:15 | disposition home or self-care (01) | DRG 895 ==
LOC: YASAS 15:30 → Y3N 19:51 → Y5N 11-23 11:49
PROVIDERS: ADMIT Surgery; ATTEND Neuromusculoskeletal Medicine & OMM
PROC: HZ2ZZZZ Detoxification Services for Substance Abuse Treatment (ICD-10-PCS; principal; 2018-11-19)
PROC: HZ42ZZZ Group Counseling for Substance Abuse Treatment, Cognitive-Behavioral (ICD-10-PCS; 2018-11-23)
DX: F11.23 Opioid dependence with withdrawal (principal); F10.21 Alcohol dependence, in remission; F13.21 Sedative, hypnotic or anxiolytic dependence, in remission; F19.24 Other psychoactive substance dependence with psychoactive substance-induced mood disorder; I10 Essential (primary) hypertension; K21.9 Gastro-esophageal reflux disease without esophagitis; J44.9 Chronic obstructive pulmonary disease, unspecified; M40.203 Unspecified kyphosis, cervicothoracic region; L40.9 Psoriasis, unspecified; G47.00 Insomnia, unspecified; K08.9 Disorder of teeth and supporting structures, unspecified; J06.9 Acute upper respiratory infection, unspecified; E66.9 Obesity, unspecified; Z68.34 Body mass index [BMI] 34.0-34.9, adult
CPT/HCPCS: 36415; 80053; 85027; 86593; 90688; 90732; 93005; 93010; 94640; G0008; G0009; J0735